=== PATIENT | male | born 2000 | race Caucasian/White ===

== ENCOUNTER 2024-05-24 21:20 | Emergency (ER) | payer OTHER ==
[~2024-05-24] VITALS: Ht 188 cm; Wt 89.5 kg
[2024-05-24 22:29] LABS: BASO % 0.4 % (0.0-1.0); EOS # 0.1 10^3/uL (0.0-0.5); EOS % 0.8 % (0.0-3.0); HEMATOCRIT 42.5 % (42.0-52.0); HEMOGLOBIN 14.6 g/dl (13.5-17.5); LYMPH # 1.8 10^3/uL (1.5-5.0); MEAN CORPUSCULAR HEMOGLOBIN 28.2 pg (27.0-33.0); MEAN CORPUSCULAR HGB CONC 34.4 g/dl (32.0-36.5); MONO # 0.4 10^3/uL (0.0-0.8); MONO % 4.8 % (2.0-8.0); NEUTROPHILS # 6.1 10^3/uL (1.5-8.5); NEUTROPHILS % 72.5 % (36.0-66.0); PLATELET COUNT, AUTOMATED 163 10^3/uL (150-450); RED BLOOD COUNT 5.18 10^6/uL (4.30-6.10); WHITE BLOOD COUNT 8.4 10^3/uL (4.0-10.0)
[2024-05-24 22:55] LABS: ALBUMIN 4.7 G/DL (3.2-5.2); ALKALINE PHOSPHATASE 62 U/L (46-116); ALT/SGPT 12 U/L (7.0-40); AST/SGOT < 8 U/L (<34); BILIRUBIN,DIRECT 0.3 MG/DL (<0.4); BLOOD UREA NITROGEN 11 MG/DL (9-23); CALCIUM LEVEL 10.2 MG/DL (8.5-10.1); CARBON DIOXIDE LEVEL 25 MMOL/L (20-31); CHLORIDE LEVEL 108 MMOL/L (98-107); CK-MB VALUE MASS < 1.0 NG/ML (<3.6); CPK CREATINE PHOSPHOKINASE 63 U/L (46-171); CREATININE FOR GFR 0.94 MG/DL (0.70-1.30); GLOMERULAR FILTRATION RATE > 60.0 (>60); GLUCOSE, FASTING 90 MG/DL (60-100); MB/CK RELATIVE INDEX 1.58 (< OR =4); POTASSIUM SERUM 3.3 MMOL/L (3.5-5.1); SODIUM LEVEL 139 MMOL/L (136-145); TOTAL PROTEIN 7.8 G/DL (5.7-8.2)
[2024-05-25] MEDS ORDERED: ISOVUE-370 76% 100ML VIAL As Ordered ONE (01:48)
[2024-05-25] MEDS ORDERED: HOLTER MONITOR XX ×2 (02:48→16:20)
[2024-05-25 03:00] VITALS: BP 124/73
[2024-05-25 03:05] LABS: CK-MB VALUE MASS < 1.0 NG/ML (<3.6)
[2024-05-25 03:06] LABS: PTH INTACT 57.7 PG/ML (18.5-88.0)
[2024-05-25 03:07] LABS: CPK CREATINE PHOSPHOKINASE 64 U/L (46-171); MB/CK RELATIVE INDEX 1.56 (< OR =4)
[2024-05-25 03:09] LABS: FREE T4 1.09 NG/DL (0.89-1.76); THYROID STIMULATING HORMONE 1.419 uIU/ML (0.55-4.78)
[2024-05-25 03:15] VITALS: TEMP 96.3; O2SAT 96
== END 2024-05-25 03:27 | disposition home or self-care (01) ==
LOC: M ED 21:20
DX: R55 Syncope and collapse (principal); R00.2 Palpitations; F10.10 Alcohol abuse, uncomplicated
CPT/HCPCS: 36415; 71275; 80048; 80076; 82550; 82553; 83735; 83970; 84439; 84443; 84484; 85025; 93005; 99284; Q9967

== ENCOUNTER → 2024-05-25 | Outpatient (CLI) | payer OTHER ==
[~2024-05-25] MED LIST: HOLTER MONITOR XX
== END ==
LOC: M LAB 16:33
PROVIDERS: ATTEND Emergency Medicine
DX: R00.2 Palpitations (principal); I49.49 Other premature depolarization